=== PATIENT | female | born 1990 | race Caucasian/White ===

== ENCOUNTER 2017-03-29 10:14 | Day surgery (SDC) | payer OTHER ==
[2017-03-23 11:12] LABS: BASOPHILS 0.7 %; BASOPHILS ABSOLUTE 0.04 10/3/uL (0.0-0.16); EOSINOPHILS 4.1 %; EOSINOPHILS ABSOLUTE 0.23 10/3/uL (0.0-0.53); HEMATOCRIT 42.4 % (36.0-48.0); HEMOGLOBIN 14.2 g/dL (12.0-16.0); IMMATURE GRANULOCYTES 0.2 %; IMMATURE GRANULOCYTES ABSOLUTE 0.01 10/3/uL (0.0-0.11); LYMPHOCYTES 34.6 %; LYMPHOCYTES ABSOLUTE 1.95 10/3/uL (0.67-4.30); MEAN CORPUS HGB CONC 33.5 g/dL (32.0-36.0); MEAN CORPUSCULAR HEMOGLOB 28.1 pg (26.0-34.0); MEAN CORPUSCULAR VOLUME 83.8 fL (80-100); MEAN PLATELET VOLUME 9.4 fL (9.2-13.0); MONOCYTES 4.6 %; MONOCYTES ABSOLUTE 0.26 10/3/uL (0.21-1.20); NEUTROPHILS 55.8 %; NEUTROPHILS ABSOLUTE 3.14 10/3/uL (2.02-8.40); PLATELET COUNT 275 10/3/uL (150-400); RBC DISTRIBUTION WIDTH 12.7 % (12.0-16.0); RED CELL COUNT 5.06 10/6/uL (4.0-5.6); WHITE BLOOD CELLS 5.6 10/3/uL (4.5-10.5)
[2017-03-23 11:13] LABS: MANUAL DIFF NO %
--- NOTE | ~2017-03-29 | OP ---
Record Of Operation [facility] [address] [place]. [address] NAME: SHASTA WANG : 89 STATUS : REG [facility] – [place], [place] PAT#: [id number] AGE: 26 ADM/REG DATE : 03/29/17 MR#: [id number] REPORT SERV DATE: 03/29/17 DICTATED BY: CLAYTON YBARRA JR. DATE: 03/29/17 REPORT STATUS : Draft TRANSCRIBED BY: MODL DATE: 03/29/17 DATE OF PROCEDURE: 03/29/2017 SURGEON: Clayton Ybarra M.D. DRY CLEANER PRESSER: Michelle Meyer. PROCEDURE: Laparoscopic cholecystectomy. PREOPERATIVE DIAGNOSIS: Cholelithiasis/biliary dyskinesia. POSTOPERATIVE DIAGNOSIS: Cholelithiasis/biliary dyskinesia. ANESTHESIA: General. INDICATIONS: The patient had episodes of right upper quadrant pain. She was found to have an abnormal gallbladder on HIDA scan. Cholecystectomy is indicated. FINDINGS: On laparoscopic examination of the abdomen, there were adhesions in the region of the triangle of Calot. The gallbladder was removed. It did contain multiple small stones. No other significant findings were encountered. PROCEDURE: With adequate general anesthesia, the patient was placed in the supine position. The abdomen was prepped and draped sterilely. 0.5% Marcaine was used for local infiltration of all trocar sites. An infraumbilical incision was made. The dissection was carried down sharply through the subcutaneous tissues. The fascia and peritoneum were opened. The peritoneal cavity was entered. A balloon-tipped trocar was introduced and the abdomen was insufflated with CO2. The laparoscope was introduced with the above-noted findings. Under direct vision, a 10/11 trocar was placed in the epigastric region and then two 5 mm trocars in the subcostal region. The gallbladder was identified, grasped, and retracted in a cephalad manner. The cystic duct and the artery were identified, doubly clipped and divided. The gallbladder was removed from its bed with electrocautery. It was then extracted through the umbilical site and submitted to Pathology. Bleeding was assured with electrocautery. Then the area was irrigated thoroughly with saline. There was no evidence of any bleeding or bile leak. Then, all trocars were removed under direct vision. The umbilical site was closed in the fascial layer with [id number] PDS. All wounds were then closed with dermal Monocryl. Sterile dressings were applied. The patient tolerated the procedure well and left the operating room in satisfactory condition. ESTIMATED BLOOD LOSS: 10 mL. RY/JENNIFER Clayton Ybarra Record Of Operation [address] [address] NAME: SHASTA WANG : 89 STATUS : [facility] [place], [place] PAT#: [id number] AGE: 26 ADM/REG DATE : 03/29/17 MR#: [id number] REPORT SERV DATE: 03/29/17 DICTATED BY: CLAYTON YBARRA JR. DATE: 03/29/17 REPORT STATUS : Draft TRANSCRIBED BY: JENNIFER DATE: 03/29/17 Anita Yen / [id number] CC: Anita Mena Jr., M.D.
[~2017-03-29 10:14] MED LIST: *DENIES; MOTRIN IB200 MG PO
[2017-03-29 11:58] LABS: A/G RATIO 1.2 (0.7-1.9); ALBUMIN 4.3 G/DL (3.5-5.0); ALKALINE PHOSPHATASE 44 U/L (45-117); BUN (BLOOD UREA NITROGEN) 11 MG/DL (6-23); CALCIUM, SERUM 9.2 MG/DL (8.5-10.4); CHLORIDE, SERUM 107 MMOL/L (96-112); CO2 (CARBON DIOXIDE) 26 MMOL/L (24-34); CREATININE 0.83 MG/DL (0.55-1.02); GFR AFRICAN AMERICAN 114 ML/MIN (>=60); GFR NON AFRICAN AMERICAN 98 ML/MIN (>=60); GLOBULIN 3.5 G/DL (2.5-4.1); GLUCOSE, SERUM 93 MG/DL (60-99); POTASSIUM, SERUM 3.7 MMOL/L (3.5-5.3); SGOT(AST) 13 U/L (5-40); SGPT(ALT) 16 U/L (5-65); SODIUM, SERUM 142 MMOL/L (135-148); TOTAL BILIRUBIN 0.7 MG/DL (0-1.2); TOTAL PROTEIN 7.8 G/DL (6.0-8.5)
== END 2017-03-29 18:22 | disposition home or self-care (01) ==
LOC: SDC 10:14
PROVIDERS: Specialist
PROC: 0FT44ZZ Resection of Gallbladder, Percutaneous Endoscopic Approach (ICD-10-PCS; principal; 2017-03-29 12:00)
DX: K80.10 Calculus of gallbladder with chronic cholecystitis without obstruction (principal); K82.8 Other specified diseases of gallbladder; T75.3XXA Motion sickness, initial encounter; Z87.891 Personal history of nicotine dependence
CPT/HCPCS: 71020; 80053; 82150; 83690; 84703; 85025; 88304; A9270-GY; J0690; J2250; J3010; Q9967